=== PATIENT | female | born 1975 | race Two or more races ===

== ENCOUNTER 2022-12-14 03:44 | Emergency (ER) | payer MEDICAID ==
[~2022-12-14] VITALS: Ht 165.1 cm; Wt 90.9 kg
[2022-12-14 03:52] VITALS: BP 137/91; PULSE 90; RESP 18; TEMP 97.8
[2022-12-14] MEDS ORDERED: TETANUS-DIPTH-ACEL PERTUSSIS 0.5ML SYR Tdap IM ONE (04:15)
[2022-12-14] MEDS ORDERED: NEOMYCIN-BACITRACIN-POLYM UNITDOSE PKG TOP OINT TOP ONE (04:15)
[2022-12-14] MEDS ORDERED: HYDR-4902 PO (04:26)
[2022-12-14] MEDS ORDERED: CLIN300C70 PO (04:26)
[2022-12-14] MEDS ORDERED: MUPI2OIN2 EX (04:26)
[2022-12-14 04:57] VITALS: O2SAT 97
[2022-12-14] MEDS: HYDROcodone-ACET 5/325MG TAB PO ONE ×2 (05:04→05:07)
== END 2022-12-14 05:24 | disposition home or self-care (01) ==
LOC: ER 03:44
DX: S91.342A Puncture wound with foreign body, left foot, initial encounter (principal); L08.9 Local infection of the skin and subcutaneous tissue, unspecified; W34.010A Accidental discharge of airgun, initial encounter; Y93.89 Activity, other specified; Y92.89 Other specified places as the place of occurrence of the external cause; Y99.8 Other external cause status
CPT/HCPCS: 73630; 90471; 90715